=== PATIENT | male | born 1960 | race Hispanic/Latino ===

== ENCOUNTER 2016-03-03 21:09 | Inpatient (IN) | payer MEDICARE ==
[2016-03-03] MEDS ORDERED: SENOKOT PO PRN (21:26)
[2016-03-03] MEDS ORDERED: D50W (25GM) IV PRN (21:26)
[2016-03-03] MEDS: DESYREL PO SCH (22:00)
[2016-03-03] MEDS: LASIX PO SCH (22:07)
[2016-03-03] MEDS: LOPRESSOR PO SCH (22:07)
[2016-03-03] MEDS: COLACE PO SCH (22:08)
[2016-03-03] MEDS: HEPARIN SUB-Q SCH (22:14)
[2016-03-03] MEDS: NOVOLOG SUB-Q SCH (22:16)
[2016-03-03] MEDS: TYLENOL PO PRN (22:17)
[2016-03-04] MEDS: LOPRESSOR PO SCH ×3 (05:54→22:33)
[2016-03-04 06:38] LABS: Basophils % (Auto) 1.4 % (0.0-1.8); Eosinophils % (Auto) 2.9 % (0.0-4.3); Hematocrit 39.2 % (35.5-45.6); Hemoglobin 12.5 gm/dl (11.8-15.2); Mean Corpuscular HGB Conc 32 % (32-34); Mean Corpuscular Hemoglobin 27 pg (28-32); Mean Corpuscular Volume 84 fl (84-94); Platelet Count 243 K/mm3 (140-440); Red Blood Count 4.68 M/mm3 (3.65-5.03); Red Cell Distribution Width 19.3 % (13.2-15.2); White Blood Count 7.6 K/mm3 (4.5-11.0)
[2016-03-04 06:54] LABS: Alanine Aminotransferase 20 units/L (7-56); Albumin/Globulin Ratio 0.8 %; Alkaline Phosphatase 81 units/L (35-129); Anion Gap 18 mmol/L; BUN/Creatinine Ratio 21.66; Blood Urea Nitrogen 13 mg/dL (9-20); Calcium 8.8 mg/dL (8.4-10.2); Carbon Dioxide 30 mmol/L (22-30); Chloride 92.3 mmol/L (98-107); Glucose 105 mg/dL (75-100); Potassium 3.3 mmol/L (3.6-5.0); Sodium 137 mmol/L (137-145); Total Protein 6.8 g/dL (6.3-8.2)
[2016-03-04] MEDS: HEPARIN SUB-Q SCH ×3 (06:57→22:00)
[2016-03-04] MEDS: NOVOLOG SUB-Q SCH ×4 (08:02→22:40)
[2016-03-04] MEDS: PROTONIX PO SCH (08:40)
[2016-03-04] MEDS: BABY ASPIRIN PO SCH (08:40)
[2016-03-04] MEDS: LASIX PO SCH ×2 (08:40→22:34)
[2016-03-04] MEDS: COLACE PO SCH ×2 (08:40→22:35)
[2016-03-04] MEDS: TYLENOL PO PRN (09:23)
[2016-03-04] MEDS: K-DUR PO SCH ×2 (09:23→17:17)
--- NOTE | 2016-03-04 09:52 | History and Physical Report ---
History of Present Illness Date: 03/04/16 Referring Facility: [facility] Date of admission: 03/03/16 21:09 Chief Complaint: Debility secondary to complications following CABG (respiratory failure, sepsis) History of present illness: POST ADMISSION PHYSICIAN EVALUATION ONSET DATE: 01/07/2016 IMPAIRMENT GROUP CODE: 16 ETIOLOGIC DIAGNOSIS: Debility secondary to complications following CABG ( respiratory failure, sepsis) STATUS CHANGES SINCE PREADMISSION SCREENING: PAS has been reviewed. In comparison, pt reports increased low back pain; history of chronic low back pain on Percocet prn at home for past several years. Will add on today; educated on need to request prior to therapies. Pt was able to initiate therapy evaluations despite pain on this AM. Pt continues with functional deficits; remains an appropriate candidate for IPR course. PREVIOUS FUNCTIONAL STATUS: Independent with ADLs, gait, transfers CURRENT FUNCTIONAL STATUS: Per PAS, pt requires min-modA for transfers and gait , short distances; functional status to be updated following completion of evaluations this AM HPI 55 y.o. morbidly obese male who presented to [facility] with complaint of chest pain; +STEMI. Pt was immediately transferred to [facility] [place]. Pt noted to have an EF of 30%; on cath- 80% occlusion of left main, 95% occlusion proximal LAD, 100% occlusion of mid LAD; unable to stent areas of occlusion. Therefore, CABG x4 was completed on 01/07/2016. Post-op course was complicated by inability to wean from vent, requiring trach placement; aspiration pneumonia with sepsis (Klebsiella and Pseudomonas). Pt was transferred to [facility] on 02/10/2016 for vent weaning and ongoing medical management. LTAC course significant for successful vent weaning and trach decannulation; wound care for stage 2 sacral pressure ulcers; also wound care for sternal incision. Pt was also followed by PT/OT; found to have functional decline from baseline; pt is now admitted for aggressive therapies and ongoing medical management. Past History Past Medical History: CAD (STEMI), diabetes, hypertension, hyperlipidemia Past Surgical History: CABG, Other (trach, with decannulation) Social history: lives with family, smoking (smoked until recent admission in Dec 2015) Family history: CAD, diabetes, hypertension Medications and Allergies Allergies Allergy/AdvReac Type Severity Reaction Status Date / Time No Known Allergies Allergy Verified 03/03/16 21:27 Active Meds: Active Medications Acetaminophen (Tylenol) 650 mg PO Q4H PRN PRN Reason: Pain MILD(1-3)/Fever >100.5/LAND Last Admin: 03/04/16 09:23 Dose: 650 mg Aspirin (Baby Aspirin) 81 mg PO QDAY [facility] Last Admin: 03/04/16 08:40 Dose: 81 mg Dextrose (D50w (25gm)) 50 ml IV PRN PRN PRN Reason: Hypoglycemia Docusate Sodium (Colace) 100 mg PO BID [facility] Last Admin: 03/04/16 08:40 Dose: 100 mg Furosemide (Lasix) 40 mg PO BID [facility] Last Admin: 03/04/16 08:40 Dose: 40 mg Heparin Sodium (Porcine) (Heparin) 5,000 unit SUB-Q Q8HR [facility] Last Admin: 03/04/16 06:57 Dose: 5,000 unit Insulin Aspart (Novolog) 0 units SUB-Q ACHS [facility] PRN Reason: Protocol Last Admin: 03/04/16 08:02 Dose: Not Given Metoprolol Tartrate (Lopressor) 12.5 mg PO Q8H [facility] Last Admin: 03/04/16 05:54 Dose: 12.5 mg Pantoprazole Sodium (Protonix) 40 mg PO QDAY [facility] Last Admin: 03/04/16 08:40 Dose: 40 mg Pneumococcal Polyvalent Vaccine (Pneumovax 23) 0.5 ml IM .ONCE ONE Stop: 03/04/16 12:01 Potassium Chloride (K-Dur) 40 meq PO Q8H [facility] Stop: 03/06/16 08:59 Last Admin: 03/04/16 09:23 Dose: 40 meq Senna (Senokot) 8.6 mg PO Q12H PRN PRN Reason: Laxative Effect Trazodone HCl (Desyrel) 25 mg PO QHS [facility] Last Admin: 03/03/16 22:00 Dose: 25 mg Review of Systems All systems: negative Constitutional: poor appetite Ears, nose, mouth and throat: no headache Cardiovascular: no chest pain, no lightheadedness Respiratory: no cough, no shortness of breath Gastrointestinal: nausea, no constipation Genitourinary Male: no dysuria Musculoskeletal: low back pain, leg numbness/tingling (left, intermittent; chronic) Psychiatric: anxiety, insomnia Exam - Constitutional Vitals: Vital Signs - 12hr 03/03/16 03/03/16 03/03/16 22:00 22:05 22:07 Temperature 97.6 F 97.6 F Pulse Rate Pulse Rate [ 62 60 Apical] Pulse Rate [ Right Brachial] Respiratory 18 18 Rate Blood Pressure 160/70 Blood Pressure 160/70 160/70 [Right Arm] O2 Sat by Pulse 94 Oximetry 03/03/16 03/04/16 03/04/16 22:36 05:54 08:00 Temperature 97.5 F L Pulse Rate 60 Pulse Rate [ 60 Apical] Pulse Rate [ 76 Right Brachial] Respiratory 18 20 Rate Blood Pressure 122/60 Blood Pressure 117/100 [Right Arm] O2 Sat by Pulse 94 97 Oximetry General appearance: no acute distress, obese, other (sitting up on edge of mat with PT; sister present) - EENT Eyes: EOM intact ENT: hearing intact - Neck Neck: supple, normal ROM, other (stoma healing well; no active drainage) - Respiratory Respiratory effort: normal Respiratory: bilateral: CTA - Cardiovascular Rhythm: regular Heart Sounds: Present: S1 & S2 - Extremities Extremity abnormal: edema, tenderness (mild at BLE) - Gastrointestinal General gastrointestinal: Present: soft, non-tender, non-distended, normal bowel sounds - Integumentary Integumentary: Present: erythema (midline sternal incision; healing well; no active drainage) - Neurologic Neurologic: CNII-XII intact, moves all extremities (4/5 strength), other ( sensation grossly intact) - Psychiatric Psychiatric: appropriate mood/affect, intact judgment & insight, memory intact, cooperative - Allied health notes FIMS assesment as documented by PT/OT/ST: Social interaction/Memory/Problem solving Social Interaction FIM Score 7. Complete [place] Memory FIM Score 6. Modified [place] Problem Solving FIM Score 5. Supervision - Labs CBC & Chem 7: 03/04/16 Unknown 03/04/16 Unknown Labs: Laboratory Results - last 72 hr 03/03/16 03/04/16 03/04/16 22:07 06:11 Unknown WBC 7.6 RBC 4.68 Hgb 12.5 Hct 39.2 MCV 84 MCH 27 L MCHC 32 RDW 19.3 H Plt Count 243 Lymph % (Auto) 23.3 [place] % (Auto) 9.5 H Eos % (Auto) 2.9 Baso % (Auto) 1.4 Lymph # 1.8 [place] # 0.7 Eos # 0.2 Baso # 0.1 Seg Neutrophils % 62.9 Seg Neutrophils # 4.8 Sodium Potassium Chloride Carbon Dioxide Anion Gap BUN Creatinine Estimated GFR BUN/Creatinine Ratio Glucose POC Glucose 100 109 H Calcium Total Bilirubin AST ALT Alkaline Phosphatase Total Protein Albumin Albumin/Globulin Ratio 03/04/16 Unknown WBC RBC Hgb Hct MCV MCH MCHC RDW Plt Count Lymph % (Auto) [place] % (Auto) Eos % (Auto) Baso % (Auto) Lymph # [place] # Eos # Baso # Seg Neutrophils % Seg Neutrophils # Sodium 137 Potassium 3.3 L Chloride 92.3 L Carbon Dioxide 30 Anion Gap 18 BUN 13 Creatinine 0.6 L Estimated GFR > 60 BUN/Creatinine Ratio 21.66 Glucose 105 H POC Glucose Calcium 8.8 Total Bilirubin 1.0 AST 40 ALT 20 Alkaline Phosphatase 81 Total Protein 6.8 Albumin 3.0 L Albumin/Globulin Ratio 0.8 Assessment and Plan Assessment and plan: 55 y.o. morbidly obese male with general debility following prolonged hospital course; s/p CABG, acute respiratory failure requiring ventilation/trach placement, now decannulated; sepsis, ABX course now completed. The patient is medically stable, however, requires ongoing medical management. Pt is appropriate for inpatient rehabilitation admission and is thought to be able to tolerate at least 3 hours of therapy a day, 5 days a week including 1.5 hours of physical therapy and 1.5 hours of occupational therapy. Patient is able to understand and follow basic directions and has attainable rehab goals. Potential barriers/complications include falls, respiratory failure, syncope, chest pain, infection, depression, DVT, PE. Plan 1. Rehabilitation- Pt will undergo multidisciplinary/integrative rehab PT/OT, Nursing. Areas to be addressed include, but are not limited to PT for mobility , strengthening, transfer training, ROM, endurance, stairs, balance; OT for ADLs , household tasks, adaptive equipment; Nursing for carryover of therapies, pain control, education, skin integrity, medication management, bowel/bladder management; Nutrition as needed; director of medical services for discharge planning and equipment needs. Potential interventions include appropriate assistive device or adaptive equipment. Expected overall level of functional improvement by discharge is Mo[place] to supervision for ADLs, gait, and transfers. Pt will tentatively be discharged home with outpatient PT. Estimated length of stay is 7-10 days. 2. debility- aggressive PT/OT to address functional decline due to prolonged hospital course. Pt limited with therapies on today due to history of chronic back pain; Percocet, which is home med, restarted on today and pt educated on prn usage. 3. s/p CABG- sternal precautions; wound care 4. HTN- continue lopressor 5. DM- SSI, ADA diet; check HgA1c 6. chronic back pain- pt reports history of lumbar disc herniation with radiculopathy; controlled by oral percocet; has previously been treated with lumbar epidural injections, followed at an outpt pain clinic 7. hypokalemia- KDur; recheck in AM; will likely require supplementation as pt is on BID lasix 8. GI/DVT Prophylaxis- protonix, heparin - Patient Problems (1) Debility Current Visit: Yes Status: Acute (2) S/P CABG x 4 Current Visit: Yes Status: Acute (3) HTN (hypertension) Current Visit: Yes Status: Acute (4) Diabetes Current Visit: Yes Status: Acute (5) Chronic low back pain Current Visit: Yes Status: Acute (6) Lumbar radiculopathy Current Visit: Yes Status: Acute (7) Morbid obesity due to excess calories Current Visit: Yes Status: Acute (8) Hypokalemia Current Visit: Yes Status: Acute
[2016-03-04] MEDS ORDERED: PNEUMOVAX 23 IM ONE (12:00)
[2016-03-04] MEDS: NORCO 10/325 PO PRN ×2 (13:24→22:32)
[2016-03-04] MEDS: DESYREL PO SCH (22:34)
[2016-03-05] MEDS: K-DUR PO SCH ×2 (01:22→09:00)
[2016-03-05] MEDS: LOPRESSOR PO SCH ×3 (06:00→22:57)
[2016-03-05] MEDS: HEPARIN SUB-Q SCH ×3 (06:30→22:27)
[2016-03-05] MEDS: BABY ASPIRIN PO SCH (09:26)
[2016-03-05] MEDS: COLACE PO SCH ×2 (09:26→22:27)
[2016-03-05] MEDS: LASIX PO SCH (09:26)
[2016-03-05] MEDS: PROTONIX PO SCH (09:26)
[2016-03-05] MEDS: NOVOLOG SUB-Q SCH ×2 (09:29→11:30)
[2016-03-05] MEDS: NORCO 10/325 PO PRN (11:41)
[2016-03-05] MEDS: PERCOCET 5/325 PO PRN (15:42)
[2016-03-05] MEDS: LIDODERM 5% TD SCH (15:43)
--- NOTE | 2016-03-05 15:54 | IRU Plan of Care ---
Interdisciplinary Plan of Care - [facility] IRU INTERDISCIPLINARY PLAN: [facility] Inpatient Rehab Unit Plan of Care IRU Interdisciplinary Care Plan Start: 03/03/16 21: 24 Freq: Admission then PRN Status: Active Document 03/05/16 10:35 DB (Rec: 03/05/16 10:42 DB [id number]) Interdisciplinary Problem List Interdisciplinary Problem List Interdisciplinary Problem List Impaired Bathing/Grooming Query Text:Answers will Trigger Problems Impaired Dressing and Outcomes on Worklist. Impaired Mobility Impaired Transfers Impaired Toileting Pain Management Knowledge Deficits Impaired Skin/Tissue Integrity Impaired Home Management Impaired Safety Medications Education Diabetes Education Impaired Oxygenation IRU Interdisciplinary Care Plan Therapy Services Therapy Services Will Include: Physical Therapy Query Text:Patient will be seen for a Occupational Therapy minimum of 3 hours of daily therapy 5 out of 7 days a week. Therapy intensity may be adjusted within a 7 consecutive day period to effectively serve the individual needs of the patient. Treatment Frequency/Intensity/Duration Treatment Frequency 5 days per week Treatment Intensity 1.5 hours per discipline (PT/OT ) daily Treatment Duration 10-14 days Problem Area: Eating/Swallowing Eating/Swallowing Outcomes Eating/Swallowing Interventions Problem Area: Bathing/Grooming Bathing/Grooming Outcomes Improve [place] w/ Grooming Improve [place] w/ Bathing Bathing/Grooming Interventions ADL Training Therapeutic Activity Activity Tolerance Work Patient/Caregiver Education Problem Area: Dressing Dressing Outcomes Improve [place] w/ UB Dressing Improve [place] w/ LB Dressing Dressing Interventions ADL Training Balance Work Patient/Caregiver Education Problem Area: Mobility Mobility Outcomes Improve [place] w/ Bed Mobility Improve [place] w/ Ambulation Improve [place] w/ Stairs /Curb Improve [place] w/ Wheelchair Mobility Interventions Therapeutic Exercise Modalities Use of Assistive Devices Patient/Caregiver Education Bed Mobility Work Gait Training W/C Mobility Work Problem Area: Transfers Transfers Outcomes Improve [place] w/ Bed Transfers Improve [place] w/ Toilet Transfers Improve [place] w/ Tub/ Shower Transfers Improve [place] w/ Car Transfers Transfers Interventions Transfer Training Therapeutic Exercise Neuromuscular Re-Education Activity Tolerance Work Modalities Use of Assistive Devices Patient/Caregiver Education Problem Area: Bowel/Bladder Managment Bowel/Bladder Outcomes Bowel/Bladder Interventions Problem Area: Toileting Toileting Outcomes Toileting Interventions Problem Area: Nutrition Nutrition Outcomes Understand and Comply w/ Diet Improve/Maintain Weight Status Nutrition Interventions Nutritional Counseling Monitor Nutrient Intake Patient/Caregiver Education Problem Area: Comprehension Comprehension Outcomes Comprehension Interventions Problem Area: Expression Expression Outcomes Expression Interventions Problem Area: Problem Solving Problem Solving Outcomes Problem Solving Interventions Problem Area: Memory Memory Outcomes Memory Interventions Problem Area: Pain Management Pain Management Outcomes Demonstrate/Verbalize Pain Strategies Pain Management Interventions Medication Management Positioning/Turning Patient/Caregiver Education Problem Area: Knowledge Deficits Knowledge Deficits Outcomes Demonstrate Ability to Manage Blood Glucose Verbalize Precautions Knowledge Deficits Interventions Medication Use Education Disease Management Education Health Maintainence Education Safety Education Problem Area: Skin/Tissue Integrity Skin/Tissue Integrity Outcomes Exhibit Healing of Wound/ Incision Demonstrate Understanding of Pressure Relief Skin/Tissue Integrity Interventions Skin/Wound Care Pressure Relief Instruction Dressing Change Education Positioning/Turning Problem Area: Social Interaction Social Interaction Outcomes Social Interaction Interventions Problem Area: Adjustment to Disability Adjustment to Disability Outcomes Adjustment to Disability Interventions Problem Area: Discharge Concerns Discharge Concerns Outcomes Discharge Home w/ Necessary Equipment Have Home Health/Outpatient Services Discharge Concerns Interventions Discharge Planning Family/Caregiver Conference Family/Caregiver Training Problem Area: Community Reintegration Community Reintegration Outcomes Demonstrate Understanding of Community Resources Community Reintegration Interventions Provide Community Resources Problem Area: Home Management Home Management Outcomes Improve [place] w/ Home Management Home Management Interventions Activity Tolerance Work Patient/Caregiver Education Problem Area: Safety Safety Outcomes Provide Safe Environment Safety Interventions Identify Fall Risk [place] Pt. to Environment Reduce Environmental Hazards Problem Area: Medication Education Medication Education Outcomes Patient/Caregiver will Verbalize Understanding of Medications Medication Education Interventions Explain Administration/Side Effects/Interactions Problem Area: Diabetes Education Diabetes Education Outcomes Demonstrate Knowledge of Resources Availlable in Diabetic Ed. Folder Diabetes Education Interventions Give Pt. Diabetes Education Folder Discuss Pathophysiology of Diabetes Problem Area: Oxygenation Oxygenation Outcomes Maintain Adequate Oxygenation Oxygenation Interventions Assess Respiratory Status Encourage Coughing and Deep Breathing Elevate Head of Bed Problem Area: Cardiovascular Cardiovascular Outcomes Cardiovascular Interventions Physician Only Medical Prognosis and Rehabilitation Patient demonstrates good Potential (Completed by Physician) rehab potential. Medical Prognosis: Good This plan of care has been developed based on the findings from the pre- admission assessment, post admission physician evaluation, information gathered from the assessments from all therapy disciplines and other pertinent clinicians. The plan of care has been reviewed and discussed in collaboration with the interdisciplinary team. The plan of care will be reviewed and updated at least weekly. 55 y.o. morbidly obese male with general debility following prolonged hospital course; s/p CABG, acute respiratory failure requiring ventilation/trach placement, now decannulated; sepsis, ABX course now completed. The patient remains at risk for falls, respiratory failure, syncope, chest pain, infection, depression, DVT, PE. Pt has history of chronic back pain and has required modifications to address increased pain; this has improved since yesterday, however, is limited participation in some activities during therapy. HgA1c is 4.7; previously diagnosed as borderline diabetic; will d/c insulin and fingersticks; continue on carb controlled diet, however, as he was doing this prior to admission. Blood pressure is stable; hypokalemia has resolved. Pt is participating well in therapies, however, continues with functional deficits. Pt remains an appropriate candidate for IPR admission.
--- NOTE | 2016-03-05 15:59 | Progress Note ---
Assessment and Plan 55 y.o. morbidly obese male with general debility following prolonged hospital course; s/p CABG, acute respiratory failure requiring ventilation/trach placement, now decannulated; sepsis, ABX course now completed - debility- continue aggressive PT/OT to address gait dysfunction, balance, endurance, self cares - s/p CABG- sternal precautions; wound care; pt and family educated on diet modifications (low fat, low cholesterol, low salt); including carb controlled; pt reports being borderline diabetic in the past on metformin Q3-4 days at one point. HgA1c this Am was 4.7; will continue on carb controlled diet, however, will d/c insulin and fingersticks - HTN- stable on lopressor - chronic back pain- history of lumbar disc herniation with radiculopathy; s/p lumbar epidural injections, followed at an outpt pain clinic. Will d/c norco 10 /325 (pt on Percocet 10/325 at home, however, not formulary here in that dose); start percocet 5/325, 2 tabs as needed; also add lidoderm patch to mid-low back ; will likely have improved level of independence once back pain continues to improve - hypokalemia- resolved - GI/DVT Prophylaxis- protonix, heparin - team conference was held on today- pt is independent with eating; s/u for grooming and UB dressing; modA for bathing, toilet and shower transfers; maxA for LB dressing and toileting; Amy for bed mobility and sit-stand transfers; maxA 40 feet with FWW. Barriers- back pain, endurance, LUE swelling- will d/c PICC line and check ultrasound. Tentative d/c date is 03/13/16. - Patient Problems (1) Debility Current Visit: Yes Status: Acute (2) S/P CABG x 4 Current Visit: Yes Status: Acute (3) HTN (hypertension) Current Visit: Yes Status: Acute (4) Chronic low back pain Current Visit: Yes Status: Acute Qualifiers: Back pain laterality: midline Sciatica presence: with sciatica Sciatica laterality: sciatica of left side Qualified Code(s): M54.42 - Lumbago with sciatica, left side; G89.29 - Other chronic pain (5) Lumbar radiculopathy Current Visit: Yes Status: Acute (6) Morbid obesity due to excess calories Current Visit: Yes Status: Acute (7) Unsteady gait Current Visit: Yes Status: Acute Subjective Date of service: 03/05/16 Principal diagnosis: Debility Interval history: Pt seen in room this afternoon, F/U IPR course, s/p acute respiratory failure, debility following CABG. Pt reports some improvement in back pain, however, states Sully is not as effective as Percocet. Also complaining of increased urination from lasix; not a home med Objective - Constitutional Vitals: Vital Signs - 12hr 03/05/16 03/05/16 03/05/16 06:00 08:00 15:43 Temperature 97.9 F Pulse Rate 62 64 Pulse Rate [ 59 L Right Brachial] Respiratory 20 Rate Blood Pressure 114/60 139/70 Blood Pressure 123/63 [Right Arm] O2 Sat by Pulse 95 Oximetry General appearance: Present: no acute distress, obese, other (mother and sister present) - EENT Eyes: EOM intact ENT: hearing intact, poor dentition - Neck Neck: supple, normal ROM - Respiratory Respiratory effort: normal Extremity abnormal: edema (LUE) - Neurologic Neurologic: CNII-XII intact, moves all extremities - Psychiatric Psychiatric: appropriate mood/affect, intact judgment & insight, memory intact, cooperative - Labs CBC & Chem 7: 03/04/16 Unknown 03/05/16 07:00 Labs: Abnormal lab results 03/05/16 Range/Units 11:27 POC Glucose 136 H (70-105)
[2016-03-05] MEDS: DESYREL PO SCH (22:27)
[2016-03-06] MEDS: LOPRESSOR PO SCH ×2 (06:02→15:38)
[2016-03-06] MEDS: HEPARIN SUB-Q SCH (06:42)
[2016-03-06] MEDS: PERCOCET 5/325 PO PRN ×3 (08:39→18:54)
[2016-03-06] MEDS: LIDODERM 5% TD SCH (11:10)
[2016-03-06] MEDS: PROTONIX PO SCH (11:11)
[2016-03-06] MEDS: BABY ASPIRIN PO SCH (11:11)
[2016-03-06] MEDS: LASIX PO SCH (11:11)
[2016-03-06] MEDS: COLACE PO SCH ×2 (11:11→22:13)
[2016-03-06] MEDS: K-DUR PO SCH (11:11)
[2016-03-06] MEDS: XARELTO PO SCH ×2 (12:40→18:53)
--- NOTE | 2016-03-06 12:42 | Progress Note ---
Assessment and Plan 55 y.o. morbidly obese male with general debility following prolonged hospital course; s/p CABG, acute respiratory failure requiring ventilation/trach placement, now decannulated; sepsis, ABX course now completed - debility- continue aggressive PT/OT to address gait dysfunction, balance, endurance, self cares - unsteady gait- continue gait training with PT; limited at times by back pain - s/p CABG- sternal precautions; wound care - HTN- stable on lopressor - chronic back pain- continue percocet and lidoderm patch; follow for improvement - [facility] [place]- left proximal subclavian vein; started on xarelto - GI/DVT Prophylaxis- protonix, heparin discontinued due to xarelto being initiated - Patient Problems (1) Debility Current Visit: Yes Status: Acute (2) S/P CABG x 4 Current Visit: Yes Status: Acute (3) HTN (hypertension) Current Visit: Yes Status: Acute (4) Chronic low back pain Current Visit: Yes Status: Acute Qualifiers: Back pain laterality: midline Sciatica presence: with sciatica Sciatica laterality: sciatica of left side Qualified Code(s): M54.42 - Lumbago with sciatica, left side; G89.29 - Other chronic pain (5) Lumbar radiculopathy Current Visit: Yes Status: Acute (6) Morbid obesity due to excess calories Current Visit: Yes Status: Acute (7) Unsteady gait Current Visit: Yes Status: Acute (8) Deep venous thrombosis of left upper extremity Current Visit: Yes Status: Acute Qualifiers: Affected thrombotic vein of extremity: other upper extremity vein Chronicity: acute Qualified Code(s): I82.622 - Acute embolism and thrombosis of deep veins of left upper extremity Subjective Date of service: 03/06/16 Principal diagnosis: Debility Interval history: Pt seen in dining room this afternoon, F/U IPR course, s/p acute respiratory failure, debility following CABG. Ongoing swelling at E; pt notified of DVT Objective - Constitutional Vitals: Vital Signs - 12hr 03/06/16 03/06/16 03/06/16 06:02 08:00 09:39 Temperature 98.6 F Pulse Rate 60 Pulse Rate [ 65 Right Brachial] Respiratory 20 20 Rate Blood Pressure 105/53 Blood Pressure 122/71 [Right Arm] O2 Sat by Pulse 96 Oximetry General appearance: Present: no acute distress, obese - EENT Eyes: EOM intact ENT: hearing intact, poor dentition - Neck Neck: supple, normal ROM - Respiratory Respiratory effort: normal Extremity abnormal: edema (LUE) - Neurologic Neurologic: CNII-XII intact, moves all extremities - Psychiatric Psychiatric: appropriate mood/affect, cooperative - Allied health notes Allied health notes reviewed: PT (Amy for transfers and gait up to 30 feet), OT (min-modA for transfers) - Labs CBC & Chem 7: 03/04/16 Unknown 03/05/16 07:00
[2016-03-06] MEDS: DESYREL PO SCH (22:11)
[2016-03-07] MEDS: PERCOCET 5/325 PO PRN ×2 (09:22→14:09)
[2016-03-07] MEDS: LIDODERM 5% TD SCH (09:23)
[2016-03-07] MEDS: BABY ASPIRIN PO SCH (09:25)
[2016-03-07] MEDS: COLACE PO SCH ×2 (09:25→22:14)
[2016-03-07] MEDS: PROTONIX PO SCH (09:25)
[2016-03-07] MEDS: XARELTO PO SCH ×2 (09:25→18:51)
[2016-03-07] MEDS: LASIX PO SCH (09:25)
[2016-03-07] MEDS: K-DUR PO SCH (09:26)
[2016-03-07] MEDS: DESYREL PO SCH (22:15)
[2016-03-07] MEDS: LOPRESSOR PO SCH (22:15)
[2016-03-08] MEDS: PERCOCET 5/325 PO PRN ×2 (08:16→17:24)
[2016-03-08] MEDS: K-DUR PO SCH (08:17)
[2016-03-08] MEDS: COLACE PO SCH ×2 (08:18→22:00)
[2016-03-08] MEDS: LASIX PO SCH (08:18)
[2016-03-08] MEDS: XARELTO PO SCH ×2 (08:18→17:20)
[2016-03-08] MEDS: PROTONIX PO SCH (08:18)
[2016-03-08] MEDS: BABY ASPIRIN PO SCH (08:18)
[2016-03-08] MEDS: LIDODERM 5% TD SCH (08:18)
[2016-03-08] MEDS: LOPRESSOR PO SCH ×2 (08:19→22:51)
[2016-03-08] MEDS: DESYREL PO SCH (22:00)
[2016-03-09 07:10] LABS: Hematocrit 37.8 % (35.5-45.6); Hemoglobin 12.2 gm/dl (11.8-15.2); Mean Corpuscular HGB Conc 32 % (32-34); Mean Corpuscular Hemoglobin 28 pg (28-32); Mean Corpuscular Volume 86 fl (84-94); Platelet Count 207 K/mm3 (140-440); Red Blood Count 4.39 M/mm3 (3.65-5.03); White Blood Count 4.7 K/mm3 (4.5-11.0)
[2016-03-09 07:21] LABS: Red Cell Distribution Width 20.6 % (13.2-15.2)
[2016-03-09 07:22] LABS: Anion Gap 17 mmol/L; Blood Urea Nitrogen 12 mg/dL (9-20); Calcium 8.8 mg/dL (8.4-10.2); Carbon Dioxide 25 mmol/L (22-30); Glucose 105 mg/dL (75-100); Potassium 4.4 mmol/L (3.6-5.0); Sodium 136 mmol/L (137-145)
[2016-03-09] MEDS: PERCOCET 5/325 PO PRN ×2 (07:54→14:52)
--- NOTE | 2016-03-09 08:10 | Vascular Lab Report ---
Left Lower Extremity Venous Duplex Study: Reason for Exam: Left arm swelling. Comments on the Right: A limited duplex study was done of the proximal veins of the right lower extremity. All veins visualized are freely compressible without evidence of internal echogenicity. Flow is spontaneous and phasic throughout. No evidence of acute or chronic thrombus is seen in any of the vessels visualized. Comments on the Left: Deep venous thrombus noted in the left subclavian vein. The remaining veins visualized are freely compressible without evidence of internal echogenicity. Spontaneous and phasic flow is present proximally. Impression: Deep venous thrombosis in the left upper extremity
[2016-03-09] MEDS: COLACE PO SCH ×2 (08:43→22:09)
[2016-03-09] MEDS: PROTONIX PO SCH (08:43)
[2016-03-09] MEDS: BABY ASPIRIN PO SCH (08:44)
[2016-03-09] MEDS: XARELTO PO SCH ×2 (08:44→17:29)
[2016-03-09] MEDS: K-DUR PO SCH (08:44)
[2016-03-09] MEDS: LASIX PO SCH (08:44)
[2016-03-09] MEDS: LIDODERM 5% TD SCH (08:44)
[2016-03-09] MEDS: LOPRESSOR PO SCH ×2 (08:45→22:10)
[2016-03-09] MEDS ORDERED: DULCOLAX PR PRN (11:53)
--- NOTE | 2016-03-09 13:22 | Progress Note ---
Assessment and Plan 55 y.o. morbidly obese male with general debility following prolonged hospital course; s/p CABG, acute respiratory failure requiring ventilation/trach placement, now decannulated; sepsis, ABX course now completed - debility- ongoing PT/OT to address gait dysfunction, balance, endurance, self cares - unsteady gait- gait distance has progressed from 5 feet to 60 feet since admission; continue gait training - s/p CABG- sternal precautions; wound care - HTN- stable on lopressor - chronic back pain- continue percocet and lidoderm patch - LUE DVT- left proximal subclavian vein; continue xarelto - Patient Problems (1) Debility Current Visit: Yes Status: Acute (2) S/P CABG x 4 Current Visit: Yes Status: Acute (3) HTN (hypertension) Current Visit: Yes Status: Acute (4) Chronic low back pain Current Visit: Yes Status: Acute Qualifiers: Back pain laterality: midline Sciatica presence: with sciatica Sciatica laterality: sciatica of left side Qualified Code(s): M54.42 - Lumbago with sciatica, left side; G89.29 - Other chronic pain (5) Lumbar radiculopathy Current Visit: Yes Status: Acute (6) Morbid obesity due to excess calories Current Visit: Yes Status: Acute (7) Unsteady gait Current Visit: Yes Status: Acute (8) Deep venous thrombosis of left upper extremity Current Visit: Yes Status: Acute Qualifiers: Affected thrombotic vein of extremity: other upper extremity vein Chronicity: acute Qualified Code(s): I82.622 - Acute embolism and thrombosis of deep veins of left upper extremity Subjective Date of service: 03/09/16 Principal diagnosis: Debility Interval history: Pt seen in room this AM, F/U IPR course, s/p acute respiratory failure, debility following CABG. Improved LUE swelling this AM; pt reports some nausea this AM, no BM in 4 days per patient Objective - Constitutional Vitals: Vital Signs - 12hr 03/09/16 03/09/16 03/09/16 08:00 08:45 08:54 Temperature 97.9 F Pulse Rate 58 L Pulse Rate [ 58 L Right Brachial] Respiratory 20 20 Rate Blood Pressure 112/59 Blood Pressure 112/59 [Right Arm] O2 Sat by Pulse 94 Oximetry General appearance: Present: no acute distress (nausea now resolved), obese - EENT Eyes: EOM intact ENT: hearing intact - Neck Neck: supple - Respiratory Respiratory effort: normal Respiratory: bilateral: CTA - Cardiovascular Rhythm: regular Heart Sounds: Present: S1 & S2 - Gastrointestinal General gastrointestinal: Present: soft, tender (RLQ), non-distended, normal bowel sounds - Integumentary Integumentary: clear - Neurologic Neurologic: CNII-XII intact, moves all extremities - Psychiatric Psychiatric: appropriate mood/affect, cooperative - Allied health notes Allied health notes reviewed: PT (min/CGA for transfers), OT (maxA for LB dressing due to back pain) - Labs CBC & Chem 7: 03/09/16 06:31 03/09/16 06:31 Labs: Abnormal lab results 03/09/16 03/09/16 Range/Units 06:31 06:31 RDW 20.6 H (13.2-15.2) % Sodium 136 L (137-145) mmol/L Glucose 105 H (75-100) mg/dL
[2016-03-09] MEDS: DESYREL PO SCH (22:09)
[2016-03-10] MEDS: K-DUR PO SCH (09:11)
[2016-03-10] MEDS: COLACE PO SCH ×2 (09:11→22:35)
[2016-03-10] MEDS: LASIX PO SCH (09:11)
[2016-03-10] MEDS: BABY ASPIRIN PO SCH (09:11)
[2016-03-10] MEDS: LOPRESSOR PO SCH ×2 (09:12→22:36)
[2016-03-10] MEDS: PROTONIX PO SCH (09:12)
[2016-03-10] MEDS: PERCOCET 5/325 PO PRN ×2 (09:13→13:48)
[2016-03-10] MEDS: LIDODERM 5% TD SCH (09:13)
[2016-03-10] MEDS: XARELTO PO SCH ×2 (09:13→18:10)
--- NOTE | 2016-03-10 13:55 | Progress Note ---
Assessment and Plan 55 y.o. morbidly obese male with general debility following prolonged hospital course; s/p CABG, acute respiratory failure requiring ventilation/trach placement, now decannulated; sepsis, ABX course now completed - debility- ongoing PT/OT to address gait dysfunction, balance, endurance, self cares - unsteady gait- progressing gait distance and improved balance; pt continues to require increased assistance with transfers - s/p CABG- sternal precautions; wound care - HTN- remains well controlled - chronic back pain- continue percocet and lidoderm patch; adjust placement of lidoderm patch for improved pain control - LUE DVT- left proximal subclavian vein; continue xarelto - Patient Problems (1) Debility Current Visit: Yes Status: Acute (2) S/P CABG x 4 Current Visit: Yes Status: Acute (3) HTN (hypertension) Current Visit: Yes Status: Acute (4) Chronic low back pain Current Visit: Yes Status: Acute Qualifiers: Back pain laterality: midline Sciatica presence: with sciatica Sciatica laterality: sciatica of left side Qualified Code(s): M54.42 - Lumbago with sciatica, left side; G89.29 - Other chronic pain (5) Lumbar radiculopathy Current Visit: Yes Status: Acute (6) Morbid obesity due to excess calories Current Visit: Yes Status: Acute (7) Unsteady gait Current Visit: Yes Status: Acute (8) Deep venous thrombosis of left upper extremity Current Visit: Yes Status: Acute Qualifiers: Affected thrombotic vein of extremity: other upper extremity vein Chronicity: acute Qualified Code(s): I82.622 - Acute embolism and thrombosis of deep veins of left upper extremity Subjective Date of service: 03/10/16 Principal diagnosis: Debility Interval history: Pt seen in room this AM, F/U IPR course, s/p acute respiratory failure, debility following CABG. Ongoing improvement in LUE swelling this AM. +BM overnight. Back pain slightly improved; will discuss placement of lidoderm patch with nursing Objective - Constitutional Vitals: Vital Signs - 12hr 03/10/16 03/10/16 03/10/16 09:12 09:13 10:13 Pulse Rate 70 Respiratory 20 20 Rate Blood Pressure 143/81 03/10/16 13:48 Pulse Rate Respiratory 22 Rate Blood Pressure General appearance: Present: no acute distress, obese - EENT Eyes: EOM intact ENT: hearing intact - Neck Neck: supple, normal ROM - Respiratory Respiratory effort: normal Extremity abnormal: edema (ongoing improvement at LUE) - Gastrointestinal General gastrointestinal: Present: non-tender, non-distended - Neurologic Neurologic: CNII-XII intact, moves all extremities - Psychiatric Psychiatric: appropriate mood/affect, intact judgment & insight, memory intact, cooperative - Allied health notes Allied health notes reviewed: PT (Amy/CGA for transfers; CGA for gait up to 60 feet), OT (LB bathing Amy, modA for toileting and LB dressing; Moise for grooming and UB dressing) - Labs CBC & Chem 7: 03/09/16 06:31 03/09/16 06:31
[2016-03-10] MEDS: DESYREL PO SCH (22:35)
[2016-03-11] MEDS: PERCOCET 5/325 PO PRN ×3 (06:37→21:19)
[2016-03-11] MEDS: LOPRESSOR PO SCH ×2 (08:00→21:17)
[2016-03-11] MEDS ORDERED: LASIX PO SCH (08:55)
[2016-03-11] MEDS: XARELTO PO SCH ×2 (10:26→18:41)
[2016-03-11] MEDS: LIDODERM 5% TD SCH (10:26)
[2016-03-11] MEDS: PROTONIX PO SCH (10:27)
[2016-03-11] MEDS: K-DUR PO SCH (10:27)
[2016-03-11] MEDS: COLACE PO SCH ×2 (10:28→21:17)
[2016-03-11] MEDS: BABY ASPIRIN PO SCH (12:29)
[2016-03-11] MEDS: LASIX PO SCH ×2 (12:30→18:41)
--- NOTE | 2016-03-11 14:06 | Progress Note ---
Assessment and Plan 55 y.o. morbidly obese male with general debility following prolonged hospital course; s/p CABG, acute respiratory failure requiring ventilation/trach placement, now decannulated; sepsis, ABX course now completed - debility- improved level of independence with self cares and mobility since admission - unsteady gait- much improved gait distance since admission; pt ambulated 5 feet maxA on initial evaluation, now ambulating up to 75 feet with CGA - s/p CABG- sternal precautions; wound care - HTN- remains well controlled - chronic back pain- continue percocet and lidoderm patch - LUE DVT- left proximal subclavian vein; continue xarelto - family training completed on today; tentative d/c home on 03/13 - Patient Problems (1) Debility Current Visit: Yes Status: Acute (2) S/P CABG x 4 Current Visit: Yes Status: Acute (3) HTN (hypertension) Current Visit: Yes Status: Acute (4) Chronic low back pain Current Visit: Yes Status: Acute Qualifiers: Back pain laterality: midline Sciatica presence: with sciatica Sciatica laterality: sciatica of left side Qualified Code(s): M54.42 - Lumbago with sciatica, left side; G89.29 - Other chronic pain (5) Lumbar radiculopathy Current Visit: Yes Status: Acute (6) Morbid obesity due to excess calories Current Visit: Yes Status: Acute (7) Unsteady gait Current Visit: Yes Status: Acute (8) Deep venous thrombosis of left upper extremity Current Visit: Yes Status: Acute Qualifiers: Affected thrombotic vein of extremity: other upper extremity vein Chronicity: acute Qualified Code(s): I82.622 - Acute embolism and thrombosis of deep veins of left upper extremity Subjective Date of service: 03/11/16 Principal diagnosis: Debility Interval history: Pt seen in dining room this AM, F/U IPR course, s/p acute respiratory failure, debility following CABG. Episode of hard stool this AM, with some minimal bleeding; also requesting to get sleep aide earlier in the evening Objective - Constitutional Vitals: Vital Signs - 12hr 03/11/16 08:40 Temperature 98.9 F Pulse Rate [ 62 Right Brachial] Respiratory 20 Rate Blood Pressure 118/60 [Right Arm] O2 Sat by Pulse 93 Oximetry General appearance: Present: no acute distress, obese - EENT Eyes: EOM intact ENT: hearing intact - Neck Neck: supple, normal ROM - Respiratory Respiratory effort: normal Extremity abnormal: edema (ongoing improvement in LUE) - Neurologic Neurologic: CNII-XII intact, moves all extremities - Psychiatric Psychiatric: appropriate mood/affect, cooperative - Allied health notes Allied health notes reviewed: PT (Moise for bed mobility; CGA for transfers and gait), OT (Moise to Aym for ADls) - Labs CBC & Chem 7: 03/09/16 06:31 03/09/16 06:31
[2016-03-11] MEDS: DESYREL PO SCH (21:16)
[2016-03-11] MEDS: PROCTOSOL-HC PR SCH (21:27)
[2016-03-12 05:45] LABS: Anion Gap 20 mmol/L; BUN/Creatinine Ratio 16.25; Blood Urea Nitrogen 13 mg/dL (9-20); Calcium 8.7 mg/dL (8.4-10.2); Carbon Dioxide 25 mmol/L (22-30); Chloride 99.8 mmol/L (98-107); Glucose 99 mg/dL (75-100); Potassium 3.7 mmol/L (3.6-5.0); Sodium 141 mmol/L (137-145)
[2016-03-12 05:49] LABS: Hematocrit 38.6 % (35.5-45.6); Hemoglobin 12.4 gm/dl (11.8-15.2); Mean Corpuscular HGB Conc 32 % (32-34); Mean Corpuscular Hemoglobin 28 pg (28-32); Mean Corpuscular Volume 86 fl (84-94); Platelet Count 232 K/mm3 (140-440); Red Blood Count 4.51 M/mm3 (3.65-5.03); Red Cell Distribution Width 19.8 % (13.2-15.2); White Blood Count 5.7 K/mm3 (4.5-11.0)
[2016-03-12] MEDS: PROCTOSOL-HC PR SCH ×3 (06:30→22:10)
[2016-03-12] MEDS: LASIX PO SCH (08:21)
[2016-03-12] MEDS: COLACE PO SCH ×2 (08:21→22:07)
[2016-03-12] MEDS: BABY ASPIRIN PO SCH (08:21)
[2016-03-12] MEDS: K-DUR PO SCH (08:21)
[2016-03-12] MEDS: PROTONIX PO SCH (08:21)
[2016-03-12] MEDS: XARELTO PO SCH ×2 (08:21→17:39)
[2016-03-12] MEDS: PERCOCET 5/325 PO PRN ×2 (08:22→17:49)
[2016-03-12] MEDS: LOPRESSOR PO SCH ×2 (08:24→22:10)
[2016-03-12] MEDS: LIDODERM 5% TD SCH (08:24)
--- NOTE | 2016-03-12 14:53 | Progress Note ---
Assessment and Plan 55 y.o. morbidly obese male with general debility following prolonged hospital course; s/p CABG, acute respiratory failure requiring ventilation/trach placement, now decannulated; sepsis, ABX course now completed - debility- tolerating aggressive therapies with much improved level of independence since admission - unsteady gait- CGA for gait, up to 50 feet - s/p CABG- sternal precautions; wound care - HTN- lopressor held due to low BP - chronic back pain- stable; continue percocet and lidoderm patch - LUE DVT- left proximal subclavian vein; continue xarelto - team conference held on today- pt is Moise for eating, grooming, dressing, bed mobility and wheelchair mobility; Amy for bathing due to assistance needed with buttocks; Amy for toileting; SBA for toilet and shower transfers; supervision for sit/stand transfers; ambulating 50 feet CGA with RW; Moise for car transfers. Barriers- chronic back pain, LUE swelling; both are improving. Family training was completed on yesterday; pt is tentative for d/c home on tomorrow. - Patient Problems (1) Debility Current Visit: Yes Status: Acute (2) S/P CABG x 4 Current Visit: Yes Status: Acute (3) HTN (hypertension) Current Visit: Yes Status: Acute (4) Chronic low back pain Current Visit: Yes Status: Acute Qualifiers: Back pain laterality: midline Sciatica presence: with sciatica Sciatica laterality: sciatica of left side Qualified Code(s): M54.42 - Lumbago with sciatica, left side; G89.29 - Other chronic pain (5) Lumbar radiculopathy Current Visit: Yes Status: Acute (6) Morbid obesity due to excess calories Current Visit: Yes Status: Acute (7) Unsteady gait Current Visit: Yes Status: Acute (8) Deep venous thrombosis of left upper extremity Current Visit: Yes Status: Acute Qualifiers: Affected thrombotic vein of extremity: other upper extremity vein Chronicity: acute Qualified Code(s): I82.622 - Acute embolism and thrombosis of deep veins of left upper extremity Subjective Date of service: 03/12/16 Principal diagnosis: Debility Interval history: Pt seen in room this AM, F/U IPR course, s/p acute respiratory failure, debility following CABG. Good relief of rectal discomfort with proctosol following large BM On yesterday; no further bleeding reported. H/H stable Objective - Constitutional Vitals: Vital Signs - 12hr 03/12/16 03/12/16 03/12/16 08:00 08:22 08:24 Temperature 97.9 F Pulse Rate 56 L Pulse Rate [ 56 L Right Brachial] Respiratory 20 18 Rate Blood Pressure 110/56 Blood Pressure 110/56 [Right Arm] O2 Sat by Pulse 92 Oximetry General appearance: Present: no acute distress, obese - EENT Eyes: EOM intact ENT: hearing intact - Neck Neck: supple, normal ROM - Respiratory Respiratory effort: normal Extremity abnormal: edema (LUE stable) - Gastrointestinal General gastrointestinal: Present: soft, non-tender - Neurologic Neurologic: CNII-XII intact, moves all extremities - Psychiatric Psychiatric: appropriate mood/affect, cooperative - Labs CBC & Chem 7: 03/12/16 05:04 03/12/16 05:04 Labs: Abnormal lab results 03/12/16 Range/Units 05:04 RDW 19.8 H (13.2-15.2) %
[2016-03-12] MEDS: DESYREL PO SCH (17:39)
[2016-03-13] MEDS: PROCTOSOL-HC PR SCH (06:00)
[2016-03-13] MEDS: PERCOCET 5/325 PO PRN ×2 (07:51→13:03)
[2016-03-13] MEDS: XARELTO PO SCH ×2 (07:52→17:13)
[2016-03-13] MEDS: LASIX PO SCH (07:53)
[2016-03-13] MEDS: K-DUR PO SCH (07:53)
[2016-03-13] MEDS: BABY ASPIRIN PO SCH (07:53)
[2016-03-13] MEDS: COLACE PO SCH (07:53)
[2016-03-13] MEDS: PROTONIX PO SCH (07:53)
[2016-03-13] MEDS: LIDODERM 5% TD SCH (07:54)
[2016-03-13] MEDS: LOPRESSOR PO SCH (08:01)
[2016-03-13 08:54] VITALS: BP 130/54
--- NOTE | 2016-03-13 12:18 | Discharge Summary ---
Providers - Providers Date of Admission: 03/03/16 21:09 Date of discharge: 03/13/16 Attending physician: KARSTEN JOHN 03/03/16 21:26 Consult to Wound/ET Nurse [CONS] Routine Reason For Exam: wound eval, sacral and sternal wounds Occupational Therapy Evaluate and Treat [CONS] Routine Comment: Reason For Exam: debility Physical Therapy Evaluation and Treat [CONS] Routine Comment: Reason For Exam: debility 03/04/16 08:41 Consult to Dietitian/Nutrition [CONS] Routine Physician Instructions: Reason For Exam: Reason for Consult: Poor oral intake Primary care physician: Dr. Grisel Salazar Hospitalization Reason for admission: Debility s/p CABG and respiratory failure Condition: Stable Hospital course: 55 y.o. morbidly obese male who presented to [facility] with complaint of chest pain; +STEMI. Pt was immediately transferred to [facility]. Pt noted to have an EF of 30%; on cath- 80% occlusion of left main, 95% occlusion proximal LAD, 100% occlusion of mid LAD; unable to stent areas of occlusion. Therefore, CABG x4 was completed on 01/07/2016. Post-op course was complicated by inability to wean from vent, requiring trach placement; aspiration pneumonia with sepsis (Klebsiella and Pseudomonas). Pt was transferred to [facility] on 02/10/2016 for vent weaning and ongoing medical management. LTAC course significant for successful vent weaning and trach decannulation; wound care for stage 2 sacral pressure ulcers; also wound care for sternal incision. Pt was also followed by PT/OT; found to have functional decline from baseline; once stable and able to tolerate therapies, pt was admitted to IRU for aggressive therapies and ongoing medical management. IRU course significant for LUE swelling, later identified as a DVT and initiated on Xarelto ; ongoing wound care for sacral DU; management of HTN, chronic back pain. On admission, pt required modA for bed mobility and transfers; maxA for gait, 5 feet with RW; independent to maxA for ADLs. At the time of discharge, pt has progressed to Moise for bed mobility, Amy/Supervision for transfers, CGA 130 feet with RW; Moise to SBA for ADLs, except Amy for LB bathing and toileting. Family training was completed prior to discharge with sister and mother. Pt is stable for d/c home. >30 mins spent on discharge process, medication reconciliation, pt/family education Disposition: DISCHARGED TO HOME OR SELFCARE - Discharge Diagnoses (1) Debility Status: Acute (2) S/P CABG x 4 Status: Acute (3) HTN (hypertension) Status: Acute Qualifiers: Hypertension type: essential hypertension Qualified Code(s): I10 - Essential (primary) hypertension (4) Chronic low back pain Status: Acute Qualifiers: Back pain laterality: midline Sciatica presence: with sciatica Sciatica laterality: sciatica of left side Qualified Code(s): M54.42 - Lumbago with sciatica, left side; G89.29 - Other chronic pain (5) Lumbar radiculopathy Status: Acute (6) Morbid obesity due to excess calories Status: Acute (7) Unsteady gait Status: Acute (8) Deep venous thrombosis of left upper extremity Status: Acute Qualifiers: Affected thrombotic vein of extremity: other upper extremity vein Chronicity: acute Qualified Code(s): I82.622 - Acute embolism and thrombosis of deep veins of left upper extremity Core Measure Documentation - Palliative Care Palliative Care/ Comfort Measures: Not Applicable - Core Measures Any of the following diagnoses?: DVT/PE - VTE Discharge Requirements Deep Vein Thrombosis/Pulmonary Embolism Present on Admission: No Has pt received <5 days of overlap therapy or INR<2.0: No Anticoagulant overlap therapy prescribed at discharge: No Contraindication No Overlap Therapy order at DC: Not Indicated (on Xarelto) Exam - Constitutional Vitals: Temp Pulse Resp BP Pulse Ox 97.1 F L 72 18 130/54 98 03/13/16 08:00 03/13/16 08:00 03/13/16 08:00 03/13/16 08:00 03/13/16 08:00 General appearance: Present: no acute distress, obese - EENT Eyes: Present: EOM intact ENT: hearing intact - Neck Neck: Present: supple, normal ROM - Respiratory Respiratory effort: normal - Extremities Extremity abnormal: edema (improving at LUE) - Abdominal General gastrointestinal: Present: soft, non-tender, non-distended - Psychiatric Psychiatric: appropriate mood/affect, intact judgment & insight, memory intact, cooperative - Neurologic Neurologic: CNII-XII intact, moves all extremities Plan Activity: no driving until cleared by PCP, fall precautions, other (sternal precautions) Weight Bearing Status: Weight Bear as Tolerated Diet: low fat, low cholesterol, low salt, diabetic Wound: per wound nurse instructions Special Instructions: physical therapy ([facility] in [place]) Durable Medical Equipment Needed Upon Discharge: Wheelchair, Bedside Commode, other (DME- [employer]) Additional Instructions: PCP in 3-5 days, Dr. Salazar; Cardiology, Dr. Carlitos Matthew; CT Surgery, [facility] Follow up with: ALPHONSO SALEEM MD [Staff Physician] - 7 Days Prescriptions: Aspirin [Aspirin BABY CHEW TAB] 81 mg PO QDAY #30 tab.chew traZODone [Desyrel] 25 mg PO QPM #30 tablet Potassium Chloride [K-Dur] 20 meq PO QDAY #30 tablet Furosemide [Lasix TAB] 20 mg PO QDAY #30 tablet Lidocaine [Lidoderm Patch] 1 each TP QDAY #30 adh..patch Metoprolol [Lopressor TAB] 12.5 mg PO BID #30 tablet oxyCODONE /ACETAMINOPHEN [Percocet 5/325 mg] 2 tab PO Q4H PRN #30 tablet PRN Reason: Pain, Moderate (4-6) Pantoprazole [Protonix TAB] 40 mg PO QDAY #30 tablet Rivaroxaban [Xarelto] 15 mg PO BIDDIAB #27 tablet Rivaroxaban [Xarelto] 20 mg PO QDAY #30 tab
[2016-03-13] MEDS: DESYREL PO SCH (17:14)
== END 2016-03-13 18:32 | disposition home or self-care (01) | DRG 871 ==
LOC: 3B 21:09
PROVIDERS: ADMIT Family Medicine; ATTEND Family Medicine
PROC: 3E0234Z Introduction of Serum, Toxoid and Vaccine into Muscle, Percutaneous Approach (ICD-10-PCS; principal; 2016-03-04)
DX: A41.9 Sepsis, unspecified organism (principal); J96.00 Acute respiratory failure, unspecified whether with hypoxia or hypercapnia; Z68.42 Body mass index [BMI] 45.0-49.9, adult; I82.B12 Acute embolism and thrombosis of left subclavian vein; R26.81 Unsteadiness on feet; R53.81 Other malaise; G89.29 Other chronic pain; I25.10 Atherosclerotic heart disease of native coronary artery without angina pectoris; L89.152 Pressure ulcer of sacral region, stage 2; E11.9 Type 2 diabetes mellitus without complications; I10 Essential (primary) hypertension; E78.5 Hyperlipidemia, unspecified; E66.01 Morbid (severe) obesity due to excess calories; E87.6 Hypokalemia; M54.16 Radiculopathy, lumbar region; M54.42 Lumbago with sciatica, left side; Z95.1 Presence of aortocoronary bypass graft; Z87.891 Personal history of nicotine dependence; Z82.49 Family history of ischemic heart disease and other diseases of the circulatory system; Z83.3 Family history of diabetes mellitus; Z23 Encounter for immunization
CPT/HCPCS: 36415; 80048; 80053; 82962; 83036; 84132; 85025; 85027; 90471; 90732; G0009; J1644